=== PATIENT | male | born 1990 ===

== ENCOUNTER 2024-07-28 07:47 | Day surgery (SDC) | payer OTHER ==
[2024-07-26 10:35] VITALS: BP 136/82
[~2024-07-28] VITALS: Ht 172.7 cm; Wt 95.3 kg
[2024-07-28] MEDS ORDERED: METRONIDAZOLE/SODIUM CHLORIDE 500 MG/100 ML PIGGYBACK IV ONE (09:37)
[2024-07-28] MEDS ORDERED: DIBUCAINE 30 GM TUBE ONE (12:26)
[2024-07-28] MEDS ORDERED: BUPIVACAINE HCL/Mpf 0.5% 10ML VIAL ONE (12:27)
[2024-07-28] MEDS ORDERED: LIDOCAINE HCL 1%/EPINEPHRINE 20ML VIAL IJ ONE (12:27)
[2024-07-28] MEDS ORDERED: HEMOSTATIC MATRIX 1 KIT KIT TOP ONE (12:27)
[2024-07-28] MEDS ORDERED: POVIDONE-IODINE 118 ML BOTT TOP ONE (12:27)
[2024-07-28] MEDS ORDERED: levoFLOXacin IN DEXTROSE 5 % 5 MG/ML PIGGYBAG IV SCH (13:30)
[2024-07-28] MEDS ORDERED: TAMSULOSIN HCL 0.4 MG CAP PO ONE ×2 (13:30→15:46)
[2024-07-28] MEDS ORDERED: OXYCODONE HCL5 MG PO (13:36)
== END 2024-07-28 19:25 | disposition home or self-care (01) ==
LOC: CIR.AMB 07:47
PROVIDERS: ATTEND Surgery
DX: K60.321 Anal fistula, complex, initial (principal); K62.89 Other specified diseases of anus and rectum; K62.5 Hemorrhage of anus and rectum; Z88.0 Allergy status to penicillin

== ENCOUNTER 2024-12-08 06:00 | Day surgery (SDC) | payer OTHER ==
[2024-12-01 11:13] VITALS: BP 128/83
[~2024-12-08] VITALS: Ht 172.7 cm; Wt 99.8 kg
[~2024-12-08 06:00] MED LIST: OXYCODONE HCL5 MG PO
[2024-12-08] MEDS ORDERED: BUPIVACAINE HCL 30 ML VIAL IJ ONE (07:45)
[2024-12-08] MEDS ORDERED: LIDOCAINE HCL 1%/EPINEPHRINE 20ML VIAL IJ ONE (07:45)
[2024-12-08] MEDS ORDERED: DIBUCAINE 15 GM OINT..GM. TUBE RECTAL ONE (08:00)
[2024-12-08] MEDS ORDERED: METRONIDAZOLE/SODIUM CHLORIDE 500 MG/100 ML PIGGYBACK IV ONE (08:00)
[2024-12-08] MEDS ORDERED: levoFLOXacin IN DEXTROSE 5 % 5 MG/ML PIGGYBAG IV ONE (08:00)
[2024-12-08] MEDS ORDERED: TAMSULOSIN HCL 0.4 MG CAP PO ONE (08:00)
[2024-12-08] MEDS ORDERED: HEMOSTATIC MATRIX 1 KIT KIT TOP ONE (08:00)
[2024-12-08] MEDS ORDERED: OXYCODONE HCL5 MG PO (08:03)
== END 2024-12-08 13:50 | disposition home or self-care (01) ==
LOC: CIR.AMB 06:00
PROVIDERS: ATTEND Surgery
DX: K60.322 Anal fistula, complex, persistent (principal); K62.89 Other specified diseases of anus and rectum